=== PATIENT | male | born 1950 | race Caucasian/White ===

== ENCOUNTER 2023-05-30 07:44 | Day surgery (SDC) | payer OTHER, BC ==
[2023-05-28 13:08] VITALS: BMI 22.8
[2023-05-30] MEDS: PHENYLEPHRINE 2.5% OPTHALMIC DROP 2ML BOTTLE ONE ×3 (08:15→08:25)
[2023-05-30] MEDS: CIPROFLOXACIN HCL 0.3% OPHTH 2.5ML BOTTLE ONE ×3 (08:15→08:25)
[2023-05-30] MEDS: TROPICAMIDE 1% OPHTH SOLN 15 ML BOTTLE ONE ×3 (08:15→08:25)
[2023-05-30] MEDS: CYCLOPENTOLATE 2% OPHTH SOLN 2 ML BOTTLE ONE ×3 (08:15→08:25)
[2023-05-30] MEDS ORDERED: TETRACAINE 0.5% OPHTH SOLN 2 ML BOTTLE ONE (08:41)
[2023-05-30] MEDS ORDERED: NEO/POLYMYX B SULF/DEXAMETH OPHTHALMIC 5ML BOTTLE ONE (08:41)
[2023-05-30] MEDS ORDERED: LIDOCAINE 1% P/F 10 MG/ML VIAL ONE (08:41)
[2023-05-30] MEDS ORDERED: CARBACHOL 0.01% INTRA-OCULAR 1.5 ML VIAL ONE (08:41)
[2023-05-30] MEDS ORDERED: BSS (NA/CA/MG/K) BALANCED SALT SOLUTION OPHTH SOLN 15 ML BOTTLE ONE (08:41)
[2023-05-30] MEDS ORDERED: MIDAZOLAM HCL 2 MG/2 ML SINGLE DOSE VIAL ONE (09:11)
[2023-05-30 10:24] VITALS: RESP 18; TEMP 97.8
[2023-05-30 10:54] VITALS: BP 113/63; PULSE 66
== END 2023-05-30 10:45 | disposition home or self-care (01) ==
LOC: FASU 07:44
PROVIDERS: ATTEND Ophthalmology
PROC: 08RJ3JZ Replacement of Right Lens with Synthetic Substitute, Percutaneous Approach (ICD-10-PCS; principal; 2023-05-30 09:55)
DX: H26.8 Other specified cataract (principal)
CPT/HCPCS: 66984; V2632